=== PATIENT | female | born 1965 | race Caucasian/White ===

== ENCOUNTER 2018-03-18 08:16 | Emergency (ER) | payer SELFPAY ==
[~2018-03-18] VITALS: Ht 144.8 cm; Wt 77.0 kg
[2018-03-18 11:52] VITALS: BP 135/83
== END 2018-03-18 11:52 | disposition home or self-care (01) ==
LOC: ER 11:04
DX: L23.9 Allergic contact dermatitis, unspecified cause (principal); R03.0 Elevated blood-pressure reading, without diagnosis of hypertension
CPT/HCPCS: 99282